=== PATIENT | female | born 1980 | race Caucasian/White ===

== ENCOUNTER 2016-07-29 04:17 | Emergency (ER) | payer BC ==
[2016-07-29 04:32] VITALS: BP 136/85
[2016-07-29 04:40] LABS: Urine Bilirubin Negative (NEGATIVE); Urine Blood Negative /ul (NEGATIVE); Urine Ketone Negative (NEGATIVE); Urine Nitrite Negative (NEGATIVE); Urine Protein Negative (NEGATIVE); Urine Specific Gravity >=1.030 SP.GR. (1.005-1.010); Urine Urobilinogen Normal (NORMAL); Urine pH 5.5 pH (5.0-7.0)
--- NOTE | 2016-07-29 04:52 | ERNOTE ---
[id number] 4d 07/29/16 04:47 Source: patient Immunizations: IMMUNIZATION HX Immunizations Up to Date Yes History of Influenza Vaccine Yes Hx Pneumococcal Vaccination No Allergies/Adverse Reactions: Allergies No Known Allergies Allergy (Verified 07/29/16 04:33) Home Medications: HOME MEDICATIONS ALPRAZolam [Xanax] 2 mg PO TID PRN 04/27/15 [Last Taken Unknown] Acetaminophen [Tylenol] 1,000 mg PO Q6H PRN 04/20/16 [Last Taken 07/29/16 02:00] Albuterol Sulfate [Ventolin HFA] 2 puff IH Q4H PRN 04/20/16 [Last Taken 04:00] Albuterol Sulfate [Proventil Hfa] 6.7 gm IH BID #1 hfa.aer.ad 07/29/16 [Last Taken Unknown] Nitrofurantoin/Nitrofuran Mac [Macrobid] 100 mg PO Q12H #14 cap 07/29/16 [Last Taken Unknown] Phenazopyridine HCl [Pyridium] 100 mg PO TID #6 tab 07/29/16 [Last Taken Unknown ] - History of Present Illness Narrative: cough, congestion, and symptoms of UTI Review of Systems - Review of Systems Constitutional: Present: no symptoms reported EYE: Present: no symptoms reported ENT: Present: See HPI Respiratory: Present: See HPI Cardiology: Present: no symptoms reported Gastrointestinal/Abdominal: Present: no symptoms reported Genitourinary: Present: frequency, dysuria - Patient's Past Medical History Patient History - Medical: Anxiety, Depression, GERD, UTI'S, Other Patient History - Cardiac/Respiratory: Asthma, COPD Patient History - Cancer: No Hx of Cancer Patient History - Surgical Procedures: Cholecystectomy, , Ear Tubes, Tubal Ligation, T & A, Other - Family History Brother Family History - Medical: No pertinent hx Family History - Cardiac/Respiratory: No pertinent hx Father Family History - Medical: No pertinent hx Family History - Cardiac/Respiratory: No pertinent hx Grandfather-Maternal Family History - Medical: Arthritis Family History - Cardiac/Respiratory: No pertinent hx Grandfather-Paternal Family History - Medical: Arthritis, Diabetes Type 2 Family History - Cardiac/Respiratory: No pertinent hx Grandmother-Maternal Family History - Medical: Anemia, Arthritis Family History - Cardiac/Respiratory: CHF Grandmother-Paternal Family History - Medical: Arthritis Family History - Cardiac/Respiratory: CHF, Hypertension Mother Family History - Medical: No pertinent hx Family History - Cardiac/Respiratory: No pertinent hx - Social History Living Situations: home Smoking Status: Current every day smoker Alcohol Use: rarely Drug Use: none ED Progress - Results and Orders Patient's Lab Results:: I have reviewed the patient's lab results. - Vital Signs Patient's Vital Signs:: I have reviewed the patient's vital signs. Vital Signs: Vital Signs 07/29/16 04:21 Temperature 36.0 C L Pulse Rate 84 Respiratory 18 Rate Blood Pressure 136/85 O2 Sat by Pulse 99 Oximetry - X-Ray X-Ray #1 X-Ray: chest - Progress/Reassessment Chief Complaint: Genitourinary Problem Departure Clinical Impression: Urinary tract infection Qualifiers: Urinary tract infection type: acute cystitis Hematuria presence: without hematuria Qualified Code(s): N30.00 - Acute cystitis without hematuria - Departure Disposition: Home self-care Condition: Good Instructions: Dysuria Prescriptions: Albuterol Sulfate [Proventil Hfa] 6.7 gm IH BID #1 hfa.aer.ad Nitrofurantoin/Nitrofuran Mac [Macrobid] 100 mg PO Q12H #14 cap Phenazopyridine HCl [Pyridium] 100 mg PO TID #6 tab
[2016-07-29 05:13] LABS: Urine Appearance Clear; Urine Color Yellow
[2016-07-29 05:14] LABS: Urine Bacteria 1+; Urine RBC 0-5 /hpf (0-5); Urine WBC 0-5 /hpf (0-5)
[2016-07-29] MEDS ORDERED: PHENAZOPYRIDINE HCL 100 MG TABLET ONE (05:16)
[2016-07-29] MEDS ORDERED: PHENAZOPYRIDINE HCL 100 MG TABLET PO ONE (05:18)
== END 2016-07-29 05:30 | disposition home or self-care (01) ==
LOC: ER 04:17
DX: N30.00 Acute cystitis without hematuria (principal); F17.200 Nicotine dependence, unspecified, uncomplicated

== ENCOUNTER 2016-10-14 20:57 | Emergency (ER) | payer OTHER ==
[2016-10-14 21:08] VITALS: BP 132/75
--- NOTE | 2016-10-14 21:27 | ERNOTE ---
Abdominal HPI - Narrative Date of Service: 10/14/16 - General Chief Complaint: Abdominal Pain Time Seen by Provider: 10/14/16 21:24 Source: patient - Immun/Allergies/Home Medications Immunizatons: IMMUNIZATION HX Immunizations Up to Date Yes History of Influenza Vaccine Yes Hx Pneumococcal Vaccination No Allergies/Adverse Reactions: Allergies No Known Allergies Allergy (Verified 07/29/16 04:33) Home Medications: HOME MEDICATIONS ALPRAZolam [Xanax] 2 mg PO TID PRN 04/27/15 [Last Taken Unknown] Acetaminophen [Tylenol] 1,000 mg PO Q6H PRN 04/20/16 [Last Taken 07/29/16 02:00] Albuterol Sulfate [Ventolin HFA] 2 puff IH Q4H PRN 04/20/16 [Last Taken 04:00] Albuterol Sulfate [Proventil Hfa] 6.7 gm IH BID #1 hfa.aer.ad 07/29/16 [Last Taken Unknown] Nitrofurantoin/Nitrofuran Mac [Macrobid] 100 mg PO Q12H #14 cap 07/29/16 [Last Taken Unknown] Phenazopyridine HCl [Pyridium] 100 mg PO TID #6 tab 07/29/16 [Last Taken Unknown ] - History of Present Illness Narrative: C.C. IS STOMACHE AND DIARRHEA. PT STATES SHE HAS HAD 2 MONTHS OF GENERALIZED ABDOMINAL PAIN AND THAT EVERY TIME SHE EATS SHE "HAS THE SHITS RIGHT AFTER". SHE STATES SHE HAS BEEN HAVING 7-10 DIARRHEA EPISODES /DAY. SHE SAYS SHE IS NOT AWARE OF ANY BLOOD IN HER STOOL BUT THAT IT IS MUCOUSY. NO FEVER. NO KNOWN HX OF CONTAMINATED FOOD OR WATER. NO FEVERS. SHE HAS PAST HX OF UTI BUT DOES NOT HAVE CURRENT UTI SX. SHE HAS NOT SEEN ANYONE FOR THIS AND STATES NOT ON MEDICATIONS FOR THIS PROBLEM. SHE WAS TALKING TO A MEDICAL FRIEND WHO TOLD HER SHE SHOULD GET CHECKED. SHE ALSO WONDERS WHAT IS CAUSING THE BULGING IN HER UPPER ABDOMEN THAT OCCURS WHEN SHE PROTRUDES HER STOMACH . Timing: constant Quality: moderate Activities at Onset: none Associated Symptoms: Present: diarrhea-mucous, swelling/mass in abdomen Review of Systems - Review of Systems Constitutional: Present: See HPI Gastrointestinal/Abdominal: Present: See HPI, diarrhea, abdominal pain. Absent : vomiting, constipation, eating less, drinking less Genitourinary: Present: no symptoms reported Musculoskeletal: Present: no symptoms reported Skin: Present: no symptoms reported Neurological: Present: no symptoms reported Endocrine: Present: no symptoms reported Hematologic/Lymphatic: Present: no symptoms reported Psych: Present: no symptoms reported All Other Systems: All systems neg except as marked - Patient's Past Medical History Patient History - Medical: Anxiety, Depression, GERD, Kidney stone, Obesity, UTI 'S, Other Patient History - Cardiac/Respiratory: COPD, Other Patient History - Cancer: No Hx of Cancer Patient History - Surgical Procedures: Cholecystectomy, , Ear Tubes, Tubal Ligation, T & A, Other Patient History - Other: None LMP (Calendar): 07/15/16 - Family History Brother Family History - Medical: No pertinent hx Family History - Cardiac/Respiratory: No pertinent hx Father Family History - Medical: No pertinent hx Family History - Cardiac/Respiratory: No pertinent hx Grandfather-Maternal Family History - Medical: Arthritis Family History - Cardiac/Respiratory: No pertinent hx Grandfather-Paternal Family History - Medical: Arthritis, Diabetes Type 2 Family History - Cardiac/Respiratory: No pertinent hx Grandmother-Maternal Family History - Medical: Anemia, Arthritis Family History - Cardiac/Respiratory: CHF Grandmother-Paternal Family History - Medical: Arthritis Family History - Cardiac/Respiratory: CHF, Hypertension Mother Family History - Medical: No pertinent hx Family History - Cardiac/Respiratory: No pertinent hx - Social History Living Situations: home Abuse History: No History of abuse Psych History: Hx of Anxiety, Hx of Depression, Current tx/ever been on anti- depressants or anti-anxiety meds Smoking Status: Current every day smoker Patient requests Smoking Cessation Consult: No Initiate information on Smoking Cessation: No Alcohol Use: rarely Drug Use: none - Immunizations Immunizations Up to Date: Yes Hx Pneumococcal Vaccination: No History of Influenza Vaccine: Yes Physical Exam - Physical Exam General Appearance: Present: wd/wn, alert, no apparent distress, other - OBESE 36 YO LADY WITH NORMAL VS. A & O WITH NAD. Respiratory: Present: no respiratory distress, normal breath sounds, no accessory muscle use, chest nontender, lungs clear Cardiovascular/Chest: Present: regular rate, rhythm, no murmur Gastrointestinal/Abdominal: Present: normal bowel sounds, nontender, soft, no organomegaly, other - PT HAS OBESE , SOFT ABDOMEN WITH RECTUS DIASTASIS TO UPPER HALF OF ABD WHICH I EXPLAINED TO HER IS CAUSED BY STRECHING OF ABDOMINAL RECTUS MUSCLES THAT CAN HAPPEN WITHDECREASE MUSCLE TONE LIKE IN A BABY OR WITH OBESITY THAT CONTRIBUTES TO STRETCHING AND SEPERATION OF THE RECTUS MUSCLES. Back Exam: Present: normal inspection, normal range of motion, no CVA tenderness , no vertebral tenderness Neurological Exam: Present: alert, oriented Skin Exam: Present: normal color, warm/dry ED Progress - Date and Time Seen: Date and Time: 10/14/16 22:02 I EXPLAINED THAT I DIDN'T KNOW WHY SHE WAS HAVING THE DIARRHEA FOR 2 MONTHS BUT THAT I WOULD ORDER BLOOD TESTS AND URINE AND STOOL C & S TO BEGIN EVALUATION. AFTER I LEFT THE ROOM TO ORDER THESE THE PT. LEFT AMA. - Vital Signs Vital Signs: Vital Signs 10/14/16 20:59 Temperature 36.7 C Pulse Rate 89 Respiratory 20 Rate Blood Pressure 132/75 O2 Sat by Pulse 99 Oximetry - Progress/Reassessment Chief Complaint: Abdominal Pain Departure - Departure Clinical Impression: Chronic abdominal pain, Chronic diarrhea of unknown origin Disposition: Against medical advice Referrals: Alley Mae DO [Primary Care Provider] -
--- OUTSIDE RECORDS SUMMARY | 2016-10-14 21:30 | XMS REPORT | Continuity of Care Document ---
:1980 Author Organization [facility] ([facility]) Address [address] [place] [address] Phone [phone] Care Team Providers Name Role Phone ColtDariel birmingham Primary Care Provider [phone] Source Comments This disclosure is being made pursuant to the Care Everywhere program, applicable federal and state laws, and may not contain all informaitonavailable regarding this patient.[facility] ([facility]) Active Allergies and Adverse Reactions Allergen Noted Date Severity Reactions Comments Silver 05/13/2012 Pruritus,OTHER burning Current Medications Prescription Sig. Disp. Refills Start Date End Date Status escitalopram 10 mg tablet Take 10 mg by Active mouth daily. ALPRAZolam 1 mg tablet Take 1 mg by mouth Active as needed. Active Problems Not on file Social History Tobacco Use Types Packs/Day Years Used Date Current Every Day Smoker 0.5 Last Filed Vital Signs Vital Sign Reading Time Taken Blood Pressure 126/76 05/13/2012 10:03 AM CDT Pulse 75 05/13/2012 10:03 AM CDT Temperature 35.1 C (95.2 F) 05/13/2012 10:03 AM CDT Respiratory Rate - - Height 1.82 m (5' 11.65") 10/25/2003 8:59 AM CDT Weight 85.866 kg (189 lb 4.8 oz) 05/13/2012 10:03 AM CDT Body Mass Index 25.92 05/13/2012 10:03 AM CDT Oxygen Saturation - - Plan of Care Health Maintenance Due Date Last Done Comments Hepatitis B Vaccine (1 of 3 - Primary Series) 1980 Tdap Vaccine 1991 Lipid Disorder Screening 1998 MMR Vaccine 1998 Td Vaccine 1998 Varicella Vaccine (1 of 2 - Adult - No Evidence of 1998 Immunity) Pneumococcal Vaccine (1 of 1 - PPSV23) 1999 Cervical Cancer Screening 2010 Influenza Vaccine: Seasonal (#1) 02/13/2016 Results from Last 3 Months Not on file
--- OUTSIDE RECORDS SUMMARY | 2016-10-14 21:30 | XMS REPORT | Summary of Care ---
:1980 Author Organization [facility] Address [address] [place] [address] [address] [place] [address] Care Team Providers Name Role Phone Physician, Primary Care Primary Care Physician Unavailable Encounter Date(s): 09/04/16 - 09/04/16 [facility] [address] [place] [address] [address] [place] [address]- Discharge Disposition: Discharged to Home or Self Care Attending Physician: SYD Dubose Referring Physician: SYD Dubose Vital Signs No data available for this section Problem List Condition Effective Dates Status Health Status Informant History of MRSA infection(Confirmed) Active Allergies, Adverse Reactions, Alerts No Known Allergies Medications Cipro 500 mg oral tablet 1 tab(s), Oral, q12hr, # 14 tab(s), 0 Refill(s), Start Date: 03/18/15 10:15:00 CDT Start Date: 03/18/15 Stop Date: 03/31/15 Status: CompletedCipro 500 mg oral tablet 1 tab(s), Oral, q12hr, # 14 tab(s), 0 Refill(s), Start Date: 04/23/16 6:39:00 CDT, Pharmacy: [place], [place] Start Date: 04/23/16 Stop Date: 04/30/16 Status: Orderedciprofloxacin 500 mg oral tablet 1 tab(s), Oral, q12hr, # 10 tab(s), 0 Refill(s), Start Date: 04/04/15 9:49:00 CDT, Pharmacy: [place], [place] Start Date: 04/04/15 Stop Date: 04/22/15 Status: CompletedKeflex 500 mg oral capsule 1 cap(s), Oral, q12hr, # 10 cap(s), 0 Refill(s), Start Date: 04/22/15 9:30:00 CDT, Pharmacy: [facility] [place], [place] Start Date: 04/22/15 Stop Date: 04/20/16 Status: CompletedNorco 5 mg-325 mg oral tablet 2 tab(s), Oral, q6hr, PRN for pain, X 3 days, # 24 tab(s), 0 Refill(s), Start Date: 04/25/15 10:26:00 CDT Start Date: 04/25/15 Stop Date: 04/28/15 Status: CompletedtraMADol 50 mg, Oral, 0 Refill(s), Start Date: 09/24/14 10:29:00 CDT Start Date: 09/24/14 Stop Date: 03/31/15 Status: Completedvenlafaxine Oral, patient unsure of dose., 0 Refill(s), Start Date: 03/31/15 12:03:00 CDT Special Instructions: patient unsure of dose. Start Date: 03/31/15 Status: OrderedXanax 2 mg oral tablet 1 tab(s), Oral, TID, PRN for anxiety, 0 Refill(s), Start Date: 09/24/14 10:29: 00 CDT Start Date: 09/24/14 Status: OrderedZithromax Z-Prasanna 0 Refill(s), Start Date: 03/18/15 10:14:00 CDT Start Date: 03/18/15 Stop Date: 03/31/15 Status: Completed Results No data available for this section Immunizations No data available for this section Procedures Procedure Date Related Diagnosis Body Site Extracorporeal Shockwave Lithotripsy (Left)1 04/25/15 Blood Patch - SN2 09/28/14 Lumbar Puncture - SN3 09/27/14 ACL repair4 C section5 Sinus surgery6 1auto-populated from documented surgical [id number] from documented surgical [id number] from documented surgical [id number] Social History No data available for this section Assessment and Plan No data available for this section
[2016-10-14 21:35] LABS: Urine Appearance Clear; Urine Bilirubin Negative (NEGATIVE); Urine Blood Negative /ul (NEGATIVE); Urine Color Yellow; Urine Ketone Negative (NEGATIVE)
[2016-10-14 21:36] LABS: Urine Bacteria None Seen; Urine Nitrite Negative (NEGATIVE); Urine Protein Negative (NEGATIVE); Urine RBC None Seen /hpf (0-5); Urine Urobilinogen Normal (NORMAL); Urine WBC 0-5 /hpf (0-5); Urine pH 6.5 pH (5.0-7.0)
== END 2016-10-14 21:50 | disposition left against medical advice (07) ==
LOC: ER 20:57
DX: R10.84 Generalized abdominal pain (principal); G89.29 Other chronic pain; K52.9 Noninfective gastroenteritis and colitis, unspecified; F17.210 Nicotine dependence, cigarettes, uncomplicated; Z53.29 Procedure and treatment not carried out because of patient's decision for other reasons

== ENCOUNTER 2016-12-20 15:35 | Emergency (ER) | payer OTHER ==
[2016-12-20 15:42] VITALS: BP 131/76
[2016-12-20 16:00] LABS: Urine Bilirubin Negative (NEGATIVE); Urine Ketone Negative (NEGATIVE); Urine Nitrite Negative (NEGATIVE); Urine Protein Negative (NEGATIVE); Urine Specific Gravity <=1.005 SP.GR. (1.005-1.010); Urine Urobilinogen Normal (NORMAL)
[2016-12-20 16:07] LABS: Urine Appearance Clear; Urine Bacteria TRACE; Urine Blood 5 /ul (NEGATIVE); Urine Color Yellow; Urine RBC 0-5 /hpf (0-5); Urine WBC None Seen /hpf (0-5)
--- OUTSIDE RECORDS SUMMARY | 2016-12-20 16:15 | XMS REPORT | Continuity of Care Document ---
:1980 Author Organization [facility] ([facility]) Address [address] [place] [address] Phone [phone] Care Team Providers Name Role Phone ColtDariel birmingham Primary Care Provider [phone] Source Comments This disclosure is being made pursuant to the Care Everywhere program, applicable federal and state laws, and may not contain all informaitonavailable regarding this patient.[facility] ([facility]) Active Allergies and Adverse Reactions Allergen [...]
--- NOTE | 2016-12-20 17:28 | ERNOTE ---
ER Female HPI Stated Complaint: VOMITTING, ABD PAIN Presenting Symptoms: other - right flank pain Time Seen by Provider: 12/20/16 15:47 Source: patient Exam Limitations: no limitations Immunizations: IMMUNIZATION HX Immunizations Up to Date Yes History of Influenza Vaccine Yes Hx Pneumococcal Vaccination No Allergies/Adverse Reactions: Allergies No Known Allergies Allergy (Verified 12/20/16 15:41) Home Medications: HOME MEDICATIONS ALPRAZolam [Xanax] 2 mg PO TID PRN 04/27/15 [Last Taken Unknown] Acetaminophen [Tylenol] 1,000 mg PO Q6H PRN 04/20/16 [Last Taken 07/29/16 02:00] Albuterol Sulfate [Ventolin HFA] 2 puff IH Q4H PRN 04/20/16 [Last Taken 04:00] Albuterol Sulfate [Proventil Hfa] 6.7 gm IH BID #1 hfa.aer.ad 07/29/16 [Last Taken Unknown] Tamsulosin HCl [Flomax] 0.4 mg PO DAILY@1800 #7 capsule 12/20/16 [Last Taken Unknown] traMADol HCL [Ultram] 50 mg PO QID PRN #20 tablet 12/20/16 [Last Taken Unknown] - History of Present Illness Timing: Present: constant Quality: Present: moderate, cramping Onset Location: Present: RLQ, right flank Radiation: Present: none Activities at Onset: Present: none Prior Abdominal Problems: Present: similar symptoms - with a kidney stone Modifying Factors - (Worsens): Present: urinating Associated Symptoms: Present: denies symptoms Review of Systems - Review of Systems Constitutional: Present: See HPI EYE: Present: no symptoms reported ENT: Present: no symptoms reported Respiratory: Present: no symptoms reported Cardiology: Present: no symptoms reported Gastrointestinal/Abdominal: Present: no symptoms reported Genitourinary: Present: pain, hematuria Musculoskeletal: Present: no symptoms reported Skin: Present: no symptoms reported Neurological: Present: no symptoms reported Endocrine: Present: no symptoms reported Hematologic/Lymphatic: Present: no symptoms reported Psych: Present: no symptoms reported - Patient's Past Medical History Patient History - Medical: Anxiety, Depression, GERD, Kidney stone, Obesity, UTI 'S, Other Patient History - Cardiac/Respiratory: No pertinent hx Patient History - Cancer: No Hx of Cancer Patient History - Surgical Procedures: Cholecystectomy, , Ear Tubes, Tubal Ligation, T & A, Other Patient History - Other: None LMP (Calendar): 07/15/16 - Family History Brother Family History - Medical: No pertinent hx Family History - Cardiac/Respiratory: No pertinent hx Father Family History - Medical: No pertinent hx Family History - Cardiac/Respiratory: No pertinent hx Grandfather-Maternal Family History - Medical: Arthritis Family History - Cardiac/Respiratory: No pertinent hx Grandfather-Paternal Family History - Medical: Arthritis, Diabetes Type 2 Family History - Cardiac/Respiratory: No pertinent hx Grandmother-Maternal Family History - Medical: Anemia, Arthritis Family History - Cardiac/Respiratory: CHF Grandmother-Paternal Family History - Medical: Arthritis Family History - Cardiac/Respiratory: CHF, Hypertension Mother Family History - Medical: No pertinent hx Family History - Cardiac/Respiratory: No pertinent hx - Social History Living Situations: home Abuse History: No History of abuse Psych History: Hx of Anxiety, Hx of Depression, Current tx/ever been on anti- depressants or anti-anxiety meds Smoking Status: Current every day smoker Have you smoked in the past 12 months: Yes Alcohol Use: rarely Drug Use: none - Immunizations Immunizations Up to Date: Yes Hx Pneumococcal Vaccination: No History of Influenza Vaccine: Yes Physical Exam - Physical Exam General Appearance: Present: wd/wn, alert, moderate distress Eye Exam: Normal inspection: bilateral, PERRL: bilateral Ears, Nose, Throat: Present: normal ENT inspection, H, normal pharynx Neck: Present: normal inspection, nontender Respiratory: Present: no respiratory distress, normal breath sounds, no accessory muscle use, chest nontender, lungs clear Cardiovascular/Chest: Present: regular rate, rhythm, no murmur, normal peripheral pulses Gastrointestinal/Abdominal: Present: normal bowel sounds, nondistended, soft, no organomegaly, tenderness Rectal Exam: Present: deferred Back Exam: Present: normal inspection, normal range of motion, CVA tenderness (R ) Extremity Exam: Present: normal inspection, non-tender, no edema, normal range of motion Neurological Exam: Present: alert, oriented, normal mood/affect Skin Exam: Present: normal color, warm/dry Lymphatic Exam: Present: no adenopathy ED Progress - Results and Orders Patient's Lab Results:: I have reviewed the patient's lab results. - Vital Signs Patient's Vital Signs:: I have reviewed the patient's vital signs. Vital Signs: Vital Signs 12/20/16 15:38 Temperature 36.8 C Pulse Rate 89 Respiratory 14 Rate Blood Pressure 131/76 O2 Sat by Pulse 100 Oximetry - CT/Ultrasound CT/Ultrasound Narrative: CT of abd/pel reviewed - Progress/Reassessment Chief Complaint: Genitourinary Problem Plan - Plan Plan: I suspect that the patient passed a kidney stone earlier on the right. CT reveals another 2 mm stone on the left as well. Patient will be treated with Flomax and tramadol for any breakthrough pain and she will follow-up with her family doctor as needed. Departure Clinical Impression: Renal colic, bilateral - Departure Disposition: Home self-care Condition: Good Instructions: Renal Colic, [id number], Kidney Stones, [id number] Referrals: Alley Mae DO [Primary Care Provider] - Prescriptions: Tamsulosin HCl [Flomax] 0.4 mg PO DAILY@1800 #7 capsule traMADol HCL [Ultram] 50 mg PO QID PRN #20 tablet PRN Reason: Moderate Pain
== END 2016-12-20 17:41 | disposition home or self-care (01) ==
LOC: ER 15:35 → SUPCPDRO 15:35 → ER 17:41
DX: N23 Unspecified renal colic (principal); F41.8 Other specified anxiety disorders; Z87.442 Personal history of urinary calculi; Z87.440 Personal history of urinary (tract) infections; Z72.0 Tobacco use

== ENCOUNTER 2017-03-15 01:31 | Emergency (ER) | payer OTHER ==
[2017-03-15] MEDS ORDERED: ONDANSETRON HCL/PF 2 MG/ML VIAL IV ONE (02:02)
[2017-03-15] MEDS ORDERED: NORMAL SALINE 1,000 ML IV ONE (02:02)
[2017-03-15] MEDS ORDERED: ONDANSETRON HCL/PF 2 MG/ML VIAL ONE (02:10)
[2017-03-15 02:23] LABS: Hematocrit 40.8 % (37.0-47.0); Mean Cell Volume 97.6 fl (78-100); Mean Corpuscular Hemoglobin 33.5 pg (27-31); Mean Corpuscular Hgb Conc 34.3 g/dl (32-36); Mean Platelet Volume 8.8 fl (6.0-9.5); Neutrophil # 4.5 K/mm3 (1.3-6.0); Neutrophil % 56.2 % (42-75.0); Platelet Count 282 K/mm3 (150-450); Red Blood Count 4.18 M/mm3 (4.2-5.4); Red Cell Distribution Width 11.7 % (11.5-14.0); White Blood Count 7.9 K/mm3 (4.0-10.5)
[2017-03-15 02:26] LABS: Urine Bilirubin Negative (NEGATIVE); Urine Blood 250 /ul (NEGATIVE); Urine Ketone Negative (NEGATIVE); Urine Nitrite Negative (NEGATIVE); Urine Protein Negative (NEGATIVE); Urine Urobilinogen Normal (NORMAL)
--- NOTE | 2017-03-15 02:31 | ERNOTE ---
ER Female HPI Stated Complaint: N/V UTI BACK PAIN Presenting Symptoms: other Time Seen by Provider: 03/15/17 01:56 Source: patient Exam Limitations: no limitations Immunizations: IMMUNIZATION HX Immunizations Up to Date Yes History of Influenza Vaccine Yes Hx Pneumococcal Vaccination No Allergies/Adverse Reactions: Allergies No Known Allergies Allergy (Verified 12/20/16 15:41) Home Medications: HOME MEDICATIONS ALPRAZolam [Xanax] 2 mg PO TID PRN 04/27/15 [Last Taken Unknown] Acetaminophen [Tylenol] 1,000 mg PO Q6H PRN 04/20/16 [Last Taken 07/29/16 02:00] Albuterol Sulfate [Ventolin HFA] 2 puff IH Q4H PRN 04/20/16 [Last Taken 04:00] Albuterol Sulfate [Proventil Hfa] 6.7 gm IH BID #1 hfa.aer.ad 07/29/16 [Last Taken Unknown] Venlafaxine HCl [Venlafaxine HCl ER] 150 mg PO DAILY 03/15/17 [Last Taken Unknown] - History of Present Illness Narrative: pt states she has had N/V for 1-2 weeks that has just been worsening. A month ago she also had a episode of N/V but by the time she got an appointment with her PCP she felt better. For the past few days she has developed dysuria and frequency also. Timing: Present: getting worse Quality: Present: moderate Onset Location: Present: other - diffuse Radiation: Present: none Activities at Onset: Present: none Prior Abdominal Problems: Present: similar symptoms - 1 month ago Associated Symptoms: Present: fever/chills, nausea, vomiting, abdominal pain Review of Systems - Review of Systems Constitutional: Present: recent illness, fever, chills EYE: Present: no symptoms reported ENT: Present: no symptoms reported Respiratory: Present: no symptoms reported Cardiology: Present: no symptoms reported Gastrointestinal/Abdominal: Present: See HPI Genitourinary: Present: See HPI Musculoskeletal: Present: back pain Skin: Present: rash, lesions - on left arm that she opened and it is improved but not healed. Neurological: Present: no symptoms reported Endocrine: Present: no symptoms reported Hematologic/Lymphatic: Present: no symptoms reported Psych: Present: no symptoms reported - Patient's Past Medical History Patient History - Medical: Anxiety, Depression, GERD, Kidney stone, Obesity, UTI 'S, Other Patient History - Cardiac/Respiratory: No pertinent hx Patient History - Cancer: No Hx of Cancer Patient History - Surgical Procedures: Cholecystectomy, , Ear Tubes, Tubal Ligation, T & A, Other, ENT, Orthopedic Patient History - Other: None LMP (females 10-50): last week LMP (Calendar): 07/15/16 - Family History Brother Family History - Medical: No pertinent hx Family History - Cardiac/Respiratory: No pertinent hx Father Family History - Medical: No pertinent hx Family History - Cardiac/Respiratory: No pertinent hx Grandfather-Maternal Family History - Medical: Arthritis Family History - Cardiac/Respiratory: No pertinent hx Grandfather-Paternal Family History - Medical: Arthritis, Diabetes Type 2 Family History - Cardiac/Respiratory: No pertinent hx Grandmother-Maternal Family History - Medical: Anemia, Arthritis Family History - Cardiac/Respiratory: CHF Grandmother-Paternal Family History - Medical: Arthritis Family History - Cardiac/Respiratory: CHF, Hypertension Mother Family History - Medical: No pertinent hx Family History - Cardiac/Respiratory: No pertinent hx - Social History Living Situations: significant other Abuse History: No History of abuse Psych History: Hx of Anxiety, Hx of Depression, Current tx/ever been on anti- depressants or anti-anxiety meds Smoking Status: Current every day smoker Have you smoked in the past 12 months: Yes Alcohol Use: occasionally Drug Use: none - Immunizations Immunizations Up to Date: Yes Hx Pneumococcal Vaccination: No History of Influenza Vaccine: Yes Physical Exam - Physical Exam General Appearance: Present: wd/wn, alert, no apparent distress Head Exam: Present: normal inspection, no evidence of injury Eye Exam: Normal inspection: bilateral Ears, Nose, Throat: Present: normal ENT inspection Neck: Present: normal inspection, nontender Respiratory: Present: no respiratory distress, no accessory muscle use Gastrointestinal/Abdominal: Present: soft, tenderness - diffuse, mild, abnormal bowel sounds - hypoactive. Absent: distended, guarding, rebound Back Exam: Present: normal range of motion, no vertebral tenderness Extremity Exam: Present: normal inspection, normal range of motion, no edema Neurological Exam: Present: alert, oriented, normal mood/affect Skin Exam: Present: warm/dry, other - left arm papule with minimal induration surrounding, no erythema surrounding the papule Lymphatic Exam: Present: no adenopathy ED Progress - Results and Orders Patient's Lab Results:: I have reviewed the patient's lab results. Results and Orders: Laboratory Tests 03/15/17 03/15/17 03/15/17 01:56 02:02 02:02 WBC 7.9 Hgb 14.0 Hct 40.8 Plt Count 282 Sodium 138 Potassium 3.8 Chloride 102 Carbon Dioxide 24.4 BUN 9 Creatinine 0.77 Random Glucose 88 Calcium 9.2 Total Bilirubin 0.2 AST 4 ALT 23 Alkaline Phosphatase 103 Total Protein 7.4 Albumin 3.9 Amylase 41 Lipase 123 Urine Color Yellow Urine Appearance Clear Urine pH 6.0 Ur Specific [place] 1.010 Urine Protein Negative Urine Glucose (UA) Negative Urine Ketones Negative Urine Blood 250 H Urine Nitrate Negative Urine Bilirubin Negative Urine Urobilinogen Normal Ur Leukocyte Esterase Negative Urine RBC 10-25 H Urine WBC 0-5 Ur Epithelial Cells 10-25 H Amorphous Sediment Few - 1+ Urine Bacteria None seen Urine Mucus Few - 1+ H Urine Culture Comments No culture indicated - Vital Signs Patient's Vital Signs:: I have reviewed the patient's vital signs. Vital Signs: Vital Signs 03/15/17 01:41 Temperature 36.5 C Pulse Rate 69 Respiratory 16 Rate Blood Pressure 136/89 O2 Sat by Pulse 99 Oximetry - X-Ray X-Ray #1 X-Ray: abdomen Interpretation: Interp. by me X-ray Comments: mild stool retention, non-specific gas pattern. Non obstructive. - CT/Ultrasound CT/Ultrasound Narrative: No acute intraabdominal pathology, Appendix is normal caliber. No periappendiceal or pericolonic acute inflammatory changes. Uterus is antiverted , bladder unremarkable. - Progress/Reassessment Chief Complaint: Genitourinary Problem Progress:: Improved Progress Note-Subjective: 03/15/17 04:45 discussed food intolerances or allergies that could be causing her symptoms. Suggested pt discuss further testing with her PCP. Departure Clinical Impression: Abdominal pain Qualifiers: Abdominal location: generalized Qualified Code(s): R10.84 - Generalized abdominal pain Vomiting Qualifiers: Vomiting type: unspecified Vomiting Intractability: non-intractable Nausea presence: with nausea Qualified Code(s): R11.2 - Nausea with vomiting, unspecified - Departure Disposition: Home Follow Up Needed Condition: Good Instructions: Nausea, Adult, Diarrhea, Adult, [id number] Additional Instructions: See your regular doctor for further work up for diarrhea. Referrals: Дмитрий Riggins MD [Primary Care Provider] -
[2017-03-15 02:40] LABS: Albumin * 3.9 gm/dl (3.4-5.0); Anion Gap 15.4 mmol/L (6.8-13.8); BUN/Creatinine Ratio 11.7 (9.0-21.6); Bilirubin, Total 0.2 mg/dL (0.0-1.1); Calcium * 9.2 mg/dL (7.9-10.9); Carbon Dioxide 24.4 mmol/L (24-32.6); Potassium 3.8 mmol/L (3.4-4.6); Total Protein 7.4 gm/dL (6.2-8.2)
[2017-03-15 02:40] LABS: Urine Amorphous Sediment Few - 1+ (NONE-FEW); Urine Appearance Clear; Urine Bacteria None Seen; Urine Color Yellow; Urine Mucus Few - 1+; Urine WBC 0-5 /hpf (0-5)
[2017-03-15 04:08] VITALS: BP 136/72
== END 2017-03-15 04:27 | disposition home or self-care (01) ==
LOC: ER 01:31
DX: R11.2 Nausea with vomiting, unspecified (principal); R10.84 Generalized abdominal pain; F41.9 Anxiety disorder, unspecified; Z87.440 Personal history of urinary (tract) infections; Z87.442 Personal history of urinary calculi; F17.200 Nicotine dependence, unspecified, uncomplicated
CPT/HCPCS: 36415; 74020; 74176; 80053; 81001; 82150; 83690; 85025; 96374; 99284; J2405

== ENCOUNTER 2017-07-23 11:16 | Emergency (ER) | payer OTHER ==
[2017-07-23] MEDS ORDERED: DICYCLOMINE HCL 10 MG/ML AMPUL IM ONE ×2 (11:49→12:00)
[2017-07-23 12:03] LABS: Hematocrit 38.5 % (37.0-47.0); Hemoglobin 13.4 gm/dL (12.5-16.0); Mean Cell Volume 97.5 fl (78-100); Mean Corpuscular Hemoglobin 33.9 pg (27-31); Mean Corpuscular Hgb Conc 34.8 g/dl (32-36); Mean Platelet Volume 8.7 fl (6.0-9.5); Neutrophil # 4.3 K/mm3 (1.3-6.0); Neutrophil % 66.1 % (42-75.0); Platelet Count 277 K/mm3 (150-450); Red Blood Count 3.95 M/mm3 (4.2-5.4); Red Cell Distribution Width 11.7 % (11.5-14.0); White Blood Count 6.6 K/mm3 (4.0-10.5)
--- NOTE | 2017-07-23 12:03 | ERNOTE ---
ER Female HPI Date of Service: 07/23/17 Stated Complaint: ABD PAIN Presenting Symptoms: dysuria, other - BLQ pain, L flank pain, malaise Time Seen by Provider: 07/23/17 11:28 Immunizations: IMMUNIZATION HX Immunizations Up to Date Yes History of Influenza Vaccine Yes Hx Pneumococcal Vaccination No Allergies/Adverse Reactions: Allergies No Known Allergies Allergy (Verified 07/23/17 11:29) Home Medications: HOME MEDICATIONS ALPRAZolam [Xanax] 2 mg PO TID PRN 04/27/15 [Last Taken Unknown] Acetaminophen [Tylenol] 1,000 mg PO Q6H PRN 04/20/16 [Last Taken 07/29/16 02:00] Albuterol Sulfate [Ventolin HFA] 2 puff IH Q4H PRN 04/20/16 [Last Taken 04:00] Albuterol Sulfate [Proventil Hfa] 6.7 gm IH BID #1 hfa.aer.ad 07/29/16 [Last Taken Unknown] Venlafaxine HCl [Venlafaxine HCl ER] 150 mg PO DAILY 03/15/17 [Last Taken Unknown] Cephalexin Monohydrate [Keflex] 500 mg PO QID #40 cap 07/23/17 [Last Taken Unknown] - History of Present Illness Narrative: Pt. comes in with c/o dysuria, malaise, fatigue, sore throat, ear pain, fever, chills, and BLQ abd pain. Pt. denies any SOB, CP, NV, rhinorrhea, sinus congestion, chest congestion, but states that she has had diarrhea for two weeks prior to these symptoms starting. Timing: Present: getting worse Quality: Present: moderate, cramping Onset Location: Present: RLQ, LLQ, left flank Radiation: Present: none Activities at Onset: Present: none Prior Abdominal Problems: Present: none Modifying Factors - (Improves): Present: other - denies Modifying Factors - (Worsens): Present: other - denies Associated Symptoms: Present: fever/chills, abdominal pain, dysuria, urinary frequency, polyuria. Absent: nausea, vomiting Review of Systems - Review of Systems Constitutional: Present: fever, chills, fatigue, malaise. Absent: weakness EYE: Present: no symptoms reported ENT: Present: no symptoms reported Respiratory: Present: no symptoms reported. Absent: shortness of breath, cough , wheezing Cardiology: Present: no symptoms reported. Absent: chest pain, palpitations, edema Gastrointestinal/Abdominal: Present: diarrhea, abdominal pain. Absent: nausea, vomiting Genitourinary: Present: no symptoms reported. Absent: frequency, decreased urinary output Musculoskeletal: Present: back pain - L flank Skin: Present: no symptoms reported. Absent: rash, change in hair/nails Neurological: Present: no symptoms reported. Absent: headache, dizziness/light- headedness, numbness, tingling All Other Systems: All systems neg except as marked - Patient's Past Medical History Patient History - Medical: Anxiety, Depression, GERD, Kidney stone, Obesity, UTI 'S Patient History - Cardiac/Respiratory: No pertinent hx Patient History - Cancer: No Hx of Cancer Patient History - Surgical Procedures: Cholecystectomy, , Ear Tubes, Tubal Ligation, T & A, Other, ENT, Orthopedic Patient History - Other: None LMP (females 10-50): last week LMP (Calendar): 07/08/17 - Family History Brother Family History - Medical: No pertinent hx Family History - Cardiac/Respiratory: No pertinent hx Father Family History - Medical: No pertinent hx Family History - Cardiac/Respiratory: No pertinent hx Grandfather-Maternal Family History - Medical: Arthritis Family History - Cardiac/Respiratory: No pertinent hx Grandfather-Paternal Family History - Medical: Arthritis, Diabetes Type 2 Family History - Cardiac/Respiratory: No pertinent hx Grandmother-Maternal Family History - Medical: Anemia, Arthritis Family History - Cardiac/Respiratory: CHF Grandmother-Paternal Family History - Medical: Arthritis Family History - Cardiac/Respiratory: CHF, Hypertension Mother Family History - Medical: No pertinent hx Family History - Cardiac/Respiratory: No pertinent hx - Social History Living Situations: home Abuse History: No History of abuse Psych History: Hx of Anxiety, Hx of Depression, Current tx/ever been on anti- depressants or anti-anxiety meds Smoking Status: Current every day smoker Have you smoked in the past 12 months: Yes Do you dip or chew tobacco: No Alcohol Use: occasionally Drug Use: none - Immunizations Immunizations Up to Date: Yes Hx Pneumococcal Vaccination: No History of Influenza Vaccine: Yes Physical Exam - Physical Exam General Appearance: Present: wd/wn, alert, no apparent distress Head Exam: Present: normal inspection, no evidence of injury Eye Exam: Normal inspection: bilateral, PERRL: bilateral, EOMI: bilateral Ears, Nose, Throat: Present: normal ENT inspection, normal pharynx Neck: Present: normal inspection, nontender, supple, full range of motion. Absent: lymphadenopathy (R), lymphadenopathy (L) Respiratory: Present: no respiratory distress, normal breath sounds, no accessory muscle use, chest nontender, lungs clear Cardiovascular/Chest: Present: regular rate, rhythm, no murmur, normal peripheral pulses Gastrointestinal/Abdominal: Present: normal bowel sounds, nontender, nondistended, soft, no organomegaly Back Exam: Present: normal inspection Extremity Exam: Present: normal inspection Neurological Exam: Present: alert, oriented, normal mood/affect, no motor/ sensory deficits Skin Exam: Present: normal color, warm/dry. Absent: pallor, skin rash ED Progress - Date and Time Seen: Date and Time: 07/23/17 12:33 Pt. is severely symptomatic for UTI so will treat although UA shows epithelial cells so is a contaminated sample I feel that she has a UTI - Results and Orders Patient's Lab Results:: I have reviewed the patient's lab results. Results and Orders: Abnormal Lab Results 07/23/17 07/23/17 07/23/17 Range/Units 11:55 11:55 Unknown RBC 3.95 L (4.2-5.4) M/mm3 MCH 33.9 H (27-31) pg Carbon Dioxide 23.7 L (24-32.6) mmol/L Anion Gap 16.1 H (6.8-13.8) mmol/L Ur Leukocyte Esterase 25 H (NEGATIVE) /ul Ur Epithelial Cells 5-10 H (0-5) /hpf - Vital Signs Patient's Vital Signs:: I have reviewed the patient's vital signs. Vital Signs: Vital Signs 07/23/17 11:25 Temperature 37.8 C H Pulse Rate 88 Respiratory 14 Rate Blood Pressure 150/94 O2 Sat by Pulse 100 Oximetry - X-Ray X-Ray #1 X-Ray: abdomen Interpretation: Reviewed by me X-ray Comments: stool retention no air fluid levels - Progress/Reassessment Chief Complaint: Urinary Tract Problems Departure Clinical Impression: UTI (urinary tract infection) Qualifiers: Urinary tract infection type: acute cystitis Hematuria presence: without hematuria Qualified Code(s): N30.00 - Acute cystitis without hematuria - Departure Disposition: Home self-care Condition: Good Instructions: Pyelonephritis, Adult, [id number] Additional Instructions: Please follow up with primary provider in 2-3 days. Please start probiotic of your choice with antibiotic. Referrals: Alley Mae DO [Primary Care Provider] - Prescriptions: Cephalexin Monohydrate [Keflex] 500 mg PO QID #40 cap
[2017-07-23 12:08] LABS: Urine Bilirubin Negative (NEGATIVE); Urine Blood Negative /ul (NEGATIVE); Urine Ketone Negative (NEGATIVE); Urine Nitrite Negative (NEGATIVE); Urine Protein Negative (NEGATIVE); Urine Urobilinogen Normal (NORMAL)
[2017-07-23 12:16] LABS: Urine Appearance Clear; Urine Bacteria TRACE; Urine Color Yellow; Urine RBC None Seen /hpf (0-5); Urine WBC 0-5 /hpf (0-5)
[2017-07-23 12:17] LABS: Albumin * 3.7 gm/dl (3.4-5.0); Anion Gap 16.1 mmol/L (6.8-13.8); BUN/Creatinine Ratio 9.8 (9.0-21.6); Bilirubin, Total 0.2 mg/dL (0.0-1.1); Ca. Corrected For Albumin 8.4 mg/dL (8.4-10.2); Calcium * 8.5 mg/dL (7.9-10.9); Carbon Dioxide 23.7 mmol/L (24-32.6); Potassium 3.8 mmol/L (3.4-4.6); Total Protein 7.1 gm/dL (6.2-8.2)
[2017-07-23 12:19] VITALS: BP 131/82
== END 2017-07-23 12:45 | disposition home or self-care (01) ==
LOC: ER 11:16
DX: Z87.442 Personal history of urinary calculi; K21.9 Gastro-esophageal reflux disease without esophagitis; N30.00 Acute cystitis without hematuria; F41.8 Other specified anxiety disorders; F17.200 Nicotine dependence, unspecified, uncomplicated; Z87.440 Personal history of urinary (tract) infections